=== PATIENT | female | born 1990 | race Caucasian/White ===

== ENCOUNTER 2017-11-13 21:07 | Emergency (ER) | payer OTHER, MEDICAID ==
--- NOTE | 2017-11-13 22:21 | EDM.PDOC ---
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 Stated Complaint: 8 WKS PREG CRAMPING Time Seen by Provider: 11/13/17 21:43 Source of Information: Reports: Patient, RN Notes Reviewed History Limitations: Reports: No Limitations - History of Present Illness INITIAL COMMENTS - FREE TEXT/NARRATIVE: 27-year-old female presents emergency department day complaint of cramping or abdominal pain, she estimates she is about 8 weeks she is a 3 para 2 she is not had any vaginal bleeding or discharge denies any fevers has had cramping for 2 days does admit to lifting boxes at work tries to drink an room maintain hydration no known exposures other than runny nose at home with her children Lower Abdomen Pain Score (Numeric/FACES): 3 - Related Data Allergies Allergy/AdvReac Type Severity Reaction Status Date / Time nystatin Allergy Cannot Verified 11/13/17 21:26 Remember Penicillins Allergy Swelling Verified 11/13/17 21:26 Home Meds: Home Meds Clindamycin HCl [Clindamycin HCl] 300 mg PO TID 11/13/17 [History] Pnv22/Iron Cbn&Gluc/Fa/Dss/Dha [PNV OB + DHA] 1 tab PO DAILY 11/13/17 [History] Past Medical History 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: Psychiatric History: Reports: Anxiety - Infectious Disease History Infectious Disease History: Reports: Chicken Pox, Measles - Past Surgical History HEENT Surgical History: Reports: Adenoidectomy, Myringotomy w Tube(s) Female Surgical History: Reports: LEEP Social & Family History - Family History Family Medical History: Noncontributory - Tobacco Use Smoking Status *Q: Current Every Day Smoker Years of Tobacco use: 12 Packs/Tins Daily: 0.5 Second Hand Smoke Exposure: Yes - Caffeine Use Caffeine Use: Reports: Coffee, Soda - Recreational Drug Use Recreational Drug Use: No ED ROS GENERAL - Review of Systems Review Of Systems: See Below Respiratory: Reports: No Symptoms Cardiovascular: Reports: No Symptoms GI/Abdominal: Reports: Abdominal Pain : Reports: No Symptoms. Denies: Irregular Menses ED EXAM - Physical Exam Exam: See Below Exam Limited By: No Limitations General Appearance: Alert, WD/WN, No Apparent Distress Respiratory/Chest: No Respiratory Distress GI/Abdominal Exam: Normal Bowel Sounds, Soft, Non-Tender, No Organomegaly, No Distention, No Abnormal Bruit, No Mass, Pelvis Stable Heart Tones: Present Heart Tones per Min: 170 (Done with ultrasound intrauterine , cardiac activity observed) Movement: Not Appreciated Course - Vital Signs Last Recorded V/S: Last Vital Signs Temp 98.5 F 11/13/17 21:39 Pulse 115 H 11/13/17 21:39 Resp 16 11/13/17 21:39 BP 111/76 11/13/17 21:39 Pulse Ox 100 11/13/17 21:39 - Orders/Labs/Meds Labs: Laboratory Tests 11/13/17 Range/Units 21:24 Urine Color Yellow Urine Appearance Clear Urine pH 7.0 (4.5-8.0) Ur Specific [place] 1.010 (1.008-1.030) Urine Protein Negative (NEGATIVE) mg/dL Urine Glucose (UA) Normal (NEGATIVE) mg/dL Urine Ketones Negative (NEGATIVE) mg/dL Urine Occult Blood Negative (NEGATIVE) Urine Nitrite Negative (NEGATIVE) Urine Bilirubin Negative (NEGATIVE) Urine Urobilinogen Normal (NORMAL) mg/dL Ur Leukocyte Esterase Negative (NEGATIVE) Urine RBC 0-5 (0-5) Urine WBC 0-5 (0-5) Ur Epithelial Cells Moderate Amorphous Sediment Few Urine Bacteria Few Urine Mucus Few Departure - Departure Time of Disposition: 22:20 Disposition: Home, Self-Care 01 Condition: Good Clinical Impression: Abdominal pain affecting - Discharge Information Referrals: PCP,None [Primary Care Provider] - Additional Instructions: Continue taking vitamin, use Tylenol as needed for pain control, recommend stop clindamycin, recommend follow-up with OB provider after holidays , call return to the emergency department worsening of symptoms - Assessment/Plan Plan: Assessment Acuity = acute Site and laterality = abdominal pain complicated patient with 3 para to 8 weeks intrauterine Etiology = possibly related to clindamycin recently started for dental infection Manifestations = none Location of injury = Home Lab values = none Plan I did review with her options including further blood work which she declined plan is to stop the clindamycin that she has had over 7 day dosing for dental infection she will reassess tomorrow and then return if any new symptomology develops she is going to try and establish with a primary care provider for obstetrical care after the first of the year This note was dictated using [employer] voice recognition software please call with any questions on syntax or veronica.
== END 2017-11-13 22:29 | disposition home or self-care (01) ==
LOC: JP.ED 21:07
DX: O26.891 Other specified pregnancy related conditions, first trimester (principal); R10.9 Unspecified abdominal pain; O99.331 Smoking (tobacco) complicating pregnancy, first trimester; Z3A.08 8 weeks gestation of pregnancy; Z88.0 Allergy status to penicillin
CPT/HCPCS: 81001; 99284

== ENCOUNTER 2018-06-21 07:02 | Inpatient (IN) | payer MEDICAID ==
[2018-06-21] MEDS ORDERED: Sodium Chloride 0.9% 10 ML Syringe FLUSH PRN (07:23)
[2018-06-21] MEDS ORDERED: Lactated Ringers 1,000 ML IV ONE (07:23)
[2018-06-21] MEDS ORDERED: ePHEDrine 50 MG/ML SDV IVPUSH ONE (07:23)
[2018-06-21] MEDS ORDERED: Ondansetron 4 MG/2 ML SDV IV PRN (07:23)
[2018-06-21] MEDS ORDERED: Calcium Carbonate 500 MG Tab.Chew PO PRN (07:23)
[2018-06-21] MEDS ORDERED: fentaNYL 100 MCG/2 ML SDV IVPUSH PRN (07:23)
[2018-06-21] MEDS ORDERED: Acetaminophen 325 MG Tab PO PRN (07:23)
[2018-06-21] MEDS ORDERED: ePHEDrine 50 MG/ML SDV IVPUSH PRN (07:50)
--- NOTE | 2018-06-21 08:32 | PCM.LDHP ---
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: 2 Other OB/BYN History: COLIN-06/22/2018 Psychiatric History: Reports: Anxiety - Infectious Disease History Infectious Disease History: Reports: Herpes - Past Surgical History HEENT Surgical History: Reports: Adenoidectomy, Myringotomy w Tube(s) Female Surgical History: Reports: LEEP Social & Family History - Family History Family Medical History: Noncontributory - Tobacco Use Smoking Status *Q: Current Every Day Smoker Years of Tobacco use: 10 Packs/Tins Daily: 0.5 Second Hand Smoke Exposure: No - Caffeine Use Caffeine Use: Reports: Coffee, Soda - Recreational Drug Use Recreational Drug Use: No H&P Review of Systems - Review of Systems: Review Of Systems: See Below General: Reports: No Symptoms HEENT: Reports: No Symptoms Pulmonary: Reports: No Symptoms Cardiovascular: Reports: No Symptoms Gastrointestinal: Reports: No Symptoms Genitourinary: Reports: No Symptoms Musculoskeletal: Reports: No Symptoms Skin: Reports: No Symptoms Psychiatric: Reports: No Symptoms Neurological: Reports: No Symptoms Hematologic/Lymphatic: Reports: No Symptoms Immunologic: Reports: No Symptoms L&D Exam - Exam Exam: See Below - Vital Signs Vital Signs: Last Vital Signs Temp 36.1 C 06/21/18 07:31 Pulse 98 06/21/18 07:31 Resp 16 06/21/18 07:31 BP 109/74 06/21/18 07:31 Pulse Ox 99 06/21/18 07:31 Weight: 64.864 kg - OB Specific Contraction Intensity: Mild Movement: Active Heart Tones: Present Heart Rate (FHR) Variability: Moderate (6-25 bmp) Estimated Weight: 6lbs - Mcgee Score Mcgee Score Cervix Position: Midposition Mcgee Score Consistency: Soft Mcgee Score Effacement: 51-70% Mcgee Score Dilation: 3-4 cm Mcgee Score Infant's Station: -1 ,0 Mcgee Score Total: 9 - Exam General: Alert, Oriented HEENT: PERRLA, Conjunctiva Clear, EACs Clear, EOMI, Hearing Intact, Mucosa Moist & [place], Nares Patent, Normal Nasal Septum, Posterior Pharynx Clear, TMs Clear Neck: Supple, Trachea Midline Lungs: Clear to Auscultation, Normal Respiratory Effort Cardiovascular: Regular Rate, Regular Rhythm GI/Abdominal Exam: Normal Bowel Sounds, Soft, Non-Tender, No Organomegaly, No Distention, No Abnormal Bruit, No Mass, Pelvis Stable Rectal Exam: Normal Exam, Normal Rectal Tone Genitourinary: Normal external exam, Normal bimanual exam, Normal speculum exam Back Exam: Normal Inspection, Full Range of Motion Extremities: Normal Inspection, Normal Range of Motion, Non-Tender, No Pedal Edema, Normal Capillary Refill Skin: Warm, Dry, Intact Neurological: Cranial Nerves Intact, Reflexes Equal Bilateral Psychiatric: Alert, Normal Affect, Normal Mood - Patient Data Lab Results Last 24 hrs: Laboratory Results - last 24 hr 06/21/18 06/21/18 06/21/18 Range/Units 07:23 07:23 07:39 WBC 13.8 H (4.5-11.0) K/uL RBC 3.51 (3.30-5.50) M/uL Hgb 10.0 L (12.0-15.0) g/dL Hct 30.5 L (36.0-48.0) % MCV 87 (80-98) fL MCH 29 (27-31) pg MCHC 33 (32-36) % Plt Count 285 (150-400) K/uL Neut % (Auto) 67 H (36-66) % Lymph % (Auto) 21 L (24-44) % [place] % (Auto) 10 H (2-6) % Eos % (Auto) 2 (2-4) % Baso % (Auto) 0 (0-1) % Sodium (140-148) mmol/L Potassium (3.6-5.2) mmol/L Chloride (100-108) mmol/L Carbon Dioxide (21-32) mmol/L Anion Gap (5.0-14.0) mmol/L BUN (7-18) mg/dL Creatinine (0.6-1.0) mg/dL Est Cr Clr Drug Dosing mL/min Estimated GFR (MDRD) (>60) Glucose (74-106) mg/dL Calcium (8.5-10.1) mg/dL Urine Color Yellow Urine Appearance Clear Urine pH 7.0 (4.5-8.0) Ur Specific [place] 1.005 L (1.008-1.030) Urine Protein Negative (NEGATIVE) mg/dL Urine Glucose (UA) Normal (NEGATIVE) mg/dL Urine Ketones Negative (NEGATIVE) mg/dL Urine Occult Blood Negative (NEGATIVE) Urine Nitrite Negative (NEGATIVE) Urine Bilirubin Negative (NEGATIVE) Urine Urobilinogen Normal (NORMAL) mg/dL Ur Leukocyte Esterase Negative (NEGATIVE) Urine RBC 0-5 (0-5) Urine WBC 0-5 (0-5) Ur Epithelial Cells Rare Amorphous Sediment Not seen Urine Bacteria Rare Urine Mucus Not seen Urine Opiates Screen Negative (NEGATIVE) Ur Oxycodone Screen Negative (NEGATIVE) Urine Methadone Screen Negative (NEGATIVE) Ur Propoxyphene Screen Negative (NEGATIVE) Ur Barbiturates Screen Negative (NEGATIVE) Ur Tricyclics Screen Negative (NEGATIVE) Ur Phencyclidine Scrn Negative (NEGATIVE) Ur Amphetamine Screen Negative (NEGATIVE) U Methamphetamines Scrn Negative (NEGATIVE) Urine MDMA Screen Negative (NEGATIVE) U Benzodiazepines Scrn Negative (NEGATIVE) U Cocaine Metab Screen Negative (NEGATIVE) U Marijuana (THC) Screen Negative (NEGATIVE) 06/21/18 Range/Units 07:39 WBC (4.5-11.0) K/uL RBC (3.30-5.50) M/uL Hgb (12.0-15.0) g/dL Hct (36.0-48.0) % MCV (80-98) fL MCH (27-31) pg MCHC (32-36) % Plt Count (150-400) K/uL Neut % (Auto) (36-66) % Lymph % (Auto) (24-44) % [place] % (Auto) (2-6) % Eos % (Auto) (2-4) % Baso % (Auto) (0-1) % Sodium 138 L (140-148) mmol/L Potassium 3.4 L (3.6-5.2) mmol/L Chloride 102 (100-108) mmol/L Carbon Dioxide 23 (21-32) mmol/L Anion Gap 16.4 H (5.0-14.0) mmol/L BUN 3 L (7-18) mg/dL Creatinine 0.6 (0.6-1.0) mg/dL Est Cr Clr Drug Dosing 131.85 mL/min Estimated GFR (MDRD) > 60 (>60) Glucose 93 (74-106) mg/dL Calcium 8.3 L (8.5-10.1) mg/dL Urine Color Urine Appearance Urine pH (4.5-8.0) Ur Specific [place] (1.008-1.030) Urine Protein (NEGATIVE) mg/dL Urine Glucose (UA) (NEGATIVE) mg/dL Urine Ketones (NEGATIVE) mg/dL Urine Occult Blood (NEGATIVE) Urine Nitrite (NEGATIVE) Urine Bilirubin (NEGATIVE) Urine Urobilinogen (NORMAL) mg/dL Ur Leukocyte Esterase (NEGATIVE) Urine RBC (0-5) Urine WBC (0-5) Ur Epithelial Cells Amorphous Sediment Urine Bacteria Urine Mucus Urine Opiates Screen (NEGATIVE) Ur Oxycodone Screen (NEGATIVE) Urine Methadone Screen (NEGATIVE) Ur Propoxyphene Screen (NEGATIVE) Ur Barbiturates Screen (NEGATIVE) Ur Tricyclics Screen (NEGATIVE) Ur Phencyclidine Scrn (NEGATIVE) Ur Amphetamine Screen (NEGATIVE) U Methamphetamines Scrn (NEGATIVE) Urine MDMA Screen (NEGATIVE) U Benzodiazepines Scrn (NEGATIVE) U Cocaine Metab Screen (NEGATIVE) U Marijuana (THC) Screen (NEGATIVE) Result Diagrams: 06/21/18 07:39 06/21/18 07:39 - Problem List (1) Unintended weight loss SNOMED Code(s): 613348569 ICD Code: R63.4 - ABNORMAL WEIGHT LOSS Status: Acute Current Visit: Yes (2) Encounter for induction of labor SNOMED Code(s): 482301707 ICD Code: Z34.90 - ENCNTR FOR SUPRVSN OF NORMAL , UNSP, UNSP TRIMESTER Status: Acute Current Visit: Yes (3) Small for gestational age fetus SNOMED Code(s): 574880103 ICD Code: OBX8130 - Status: Acute Current Visit: Yes (4) SNOMED Code(s): 36379977 ICD Code: Z34.90 - ENCNTR FOR SUPRVSN OF NORMAL , UNSP, UNSP TRIMESTER Status: Acute Current Visit: Yes Qualifiers: Weeks of gestation: 39 weeks Qualified Code(s): Z3A.39 - 39 weeks gestation of Problem List Initiated/Reviewed/Updated: Yes Orders Last 24hrs: Active Orders 24 hr Category Date Time Status Patient Status [ADT] Routine ADT 06/21/18 07:25 Active Ambulate [RC] PER UNIT ROUTINE Care 06/21/18 07:23 Active Communication Order [RC] ASDIRECTED Care 06/21/18 07:25 Active Non Stress Test [RC] Click to Edit Care 06/21/18 07:25 Active Insert Urinary Catheter [OM.PC] ASDIRECTED Care 06/21/18 07:30 Ordered Local Anesthetic Infusion Pump [RC] ASDIRECTED Care 06/21/18 07:25 Active Notify Provider Vital Signs [RC] PRN Care 06/21/18 07:23 Active Notify Provider [RC] PRN Care 06/21/18 07:25 Active PCEA Epidural [RC] ASDIRECTED Care 06/21/18 07:25 Active Up ad Nicole [RC] ASDIRECTED Care 06/21/18 07:23 Active Urinary Catheter Assessment [RC] ASDIRECTED Care 06/21/18 07:26 Active VTE/DVT Education [RC] Click to Edit Care 06/21/18 07:29 Active Verify Patient Consent Obtain [RC] ASDIRECTED Care 06/21/18 07:25 Active Vital Signs [RC] PER UNIT ROUTINE Care 06/21/18 07:25 Active Regular Diet [DIET] Diet 06/21/18 Breakfast Active DRUG SCREEN, URINE [URCHEM] Urgent Lab 06/21/18 07:23 Ordered UA W/MICROSCOPIC [URIN] Urgent Lab 06/21/18 07:23 Ordered Acetaminophen [Tylenol] Med 06/21/18 07:23 Active 650 mg PO Q4H PRN Calcium Carbonate [Tums] Med 06/21/18 07:23 Active 1,000 mg PO Q2H PRN Ondansetron [Zofran] Med 06/21/18 07:23 Active 4 mg IV Q4H PRN Oxytocin/Normal Saline [Pitocin in NS 20 Units/1,000 ML Med 06/21/18 07:30 Active ] 20 unit in 1,000 ml IV TITRATE Sodium Chloride 0.9% [Saline Flush] Med 06/21/18 07:23 Active 10 ml FLUSH ASDIRECTED PRN ePHEDrine [ePHEDrine Sulfate] Med 06/21/18 07:50 Active 5 mg IVPUSH ONETIME PRN fentaNYL [Sublimaze] Med 06/21/18 07:23 Active 100 mcg IVPUSH Q1H PRN DVT/VTE Prophylaxis Reflex [OM.PC] Routine Oth 06/21/18 07:23 Ordered Epidural Catheter Management [OM.PC] Urgent Oth 06/21/18 07:25 Ordered Saline Lock Insert [OM.PC] Routine Oth 06/21/18 07:25 Ordered Resuscitation Status Routine Resus Stat 06/21/18 07:23 Ordered Medication Orders Acetaminophen (Tylenol) 650 mg PO Q4H PRN PRN Reason: Pain (Mild 1-3) and fever Calcium Carbonate/Glycine (Tums) 1,000 mg PO Q2H PRN PRN Reason: Indigestion Ephedrine Sulfate (Ephedrine Sulfate) 5 mg IVPUSH ONETIME PRN PRN Reason: REFER TO INSTRUCTION Fentanyl (Sublimaze) 100 mcg IVPUSH Q1H PRN PRN Reason: Pain (moderate 4-6) Oxytocin/Sodium Chloride (Pitocin In Ns 20 Units/1,000 Ml) 20 unit in 1,000 mls @ 6 mls/hr IV TITRATE OLGA; Protocol Last Admin: 06/21/18 08:10 Dose: 1 munits/min, 3 mls/hr Ondansetron HCl (Zofran) 4 mg IV Q4H PRN PRN Reason: Nausea/Vomiting Sodium Chloride (Saline Flush) 10 ml FLUSH ASDIRECTED PRN PRN Reason: Keep Vein Open Assessment/Plan Comment:: 06/21/2018 27 yo at 39 6/7 gestational weeks here for an induction of labor Small for gestational age 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
[2018-06-21] MEDS ORDERED: Ropivacaine HCl/PF 200 ML ONE (14:31)
--- NOTE | 2018-06-21 14:32 | PCM.PNLD ---
Labor Progress Note - VS & Meds Vital Signs: Last Vital Signs Temp 35.8 C 06/21/18 10:08 Pulse 67 06/21/18 10:08 Resp 16 06/21/18 10:08 BP 108/64 06/21/18 10:08 Pulse Ox 99 06/21/18 10:08 Active Medications: Current Medications Acetaminophen (Tylenol) 650 mg PO Q4H PRN PRN Reason: Pain (Mild 1-3) and fever Last Admin: 06/21/18 10:05 Dose: 650 mg Calcium Carbonate/Glycine (Tums) 1,000 mg PO Q2H PRN PRN Reason: Indigestion Ephedrine Sulfate (Ephedrine Sulfate) 5 mg IVPUSH ONETIME PRN PRN Reason: REFER TO INSTRUCTION Fentanyl (Sublimaze) 100 mcg IVPUSH Q1H PRN PRN Reason: Pain (moderate 4-6) Oxytocin/Sodium Chloride (Pitocin In Ns 20 Units/1,000 Ml) 20 unit in 1,000 mls @ 6 mls/hr IV TITRATE OLGA; Protocol Last Titration: 06/21/18 12:36 Dose: 13 munits/min, 39 mls/hr Ondansetron HCl (Zofran) 4 mg IV Q4H PRN PRN Reason: Nausea/Vomiting Sodium Chloride (Saline Flush) 10 ml FLUSH ASDIRECTED PRN PRN Reason: Keep Vein Open Discontinued Medications Lactated Ringer's (Ringers, Lactated) 1,000 mls @ 999 mls/hr IV ONETIME ONE Stop: 06/21/18 08:23 Last Admin: 06/21/18 14:01 Dose: 999 mls/hr - Uterine Contractions Uterine Monitoring Mode: External [place] Contraction Frequency (min): 2-2.5 Contraction Duration (sec): 50-90 Contraction Intensity: Strong Uterine Resting Tone: Soft - Monitoring Heart Rate (FHR) Variability: Moderate (6-25 bmp) - Vaginal Exam Dilation (cm): 8 Effacement (Percent): 90 Station: 0 Cervical Position: Midposition Sterile Vaginal Exam Performed By: Odette Silveira - Labor Progress (Free Text) Labor Progress: 06/21/2018 Labor progressing well SROM SVE-8/90/0 Patient requesting epidural FHTs category one Stacey regular on Pitocin Plan- Continue to monitor labor Attempt to get epidural for pain control Continue to monitor FHTs Continue pitocin per protocol Plan and anticipate a vaginal delivery
--- NOTE | 2018-06-21 14:34 | PCM.PNLD ---
Labor Progress Note - VS & Meds Vital Signs: Last Vital Signs Temp 35.8 C 06/21/18 10:08 Pulse 67 06/21/18 10:08 Resp 16 06/21/18 10:08 BP 108/64 06/21/18 10:08 Pulse Ox 99 06/21/18 10:08 Active Medications: Current Medications Acetaminophen (Tylenol) 650 mg PO Q4H PRN PRN Reason: Pain (Mild 1-3) and fever Last Admin: 06/21/18 10:05 Dose: 650 mg Calcium Carbonate/Glycine (Tums) 1,000 mg PO Q2H PRN PRN Reason: Indigestion Ephedrine Sulfate (Ephedrine Sulfate) 5 mg IVPUSH ONETIME PRN PRN Reason: REFER TO INSTRUCTION Fentanyl (Sublimaze) 100 mcg IVPUSH Q1H PRN PRN Reason: Pain (moderate 4-6) Oxytocin/Sodium Chloride (Pitocin In Ns 20 Units/1,000 Ml) 20 unit in 1,000 mls @ 6 mls/hr IV TITRATE OLGA; Protocol Last Titration: 06/21/18 12:36 Dose: 13 munits/min, 39 mls/hr Ondansetron HCl (Zofran) 4 mg IV Q4H PRN PRN Reason: Nausea/Vomiting Sodium Chloride (Saline Flush) 10 ml FLUSH ASDIRECTED PRN PRN Reason: Keep Vein Open Discontinued Medications Lactated Ringer's (Ringers, Lactated) 1,000 mls @ 999 mls/hr IV ONETIME ONE Stop: 06/21/18 08:23 Last Admin: 06/21/18 14:01 Dose: 999 mls/hr Ropivacaine (Naropin 0.2%) Confirm Administered Dose 200 mls @ as directed .ROUTE .STK-MED ONE Stop: 06/21/18 14:32 - Uterine Contractions Uterine Monitoring Mode: External [place] Contraction Frequency (min): 2-2.5 Contraction Duration (sec): 50-90 Contraction Intensity: Strong Uterine Resting Tone: Soft - Monitoring Heart Rate (FHR) Variability: Moderate (6-25 bmp) - Vaginal Exam Dilation (cm): 4 Effacement (Percent): 90 Station: 0 Cervical Position: Midposition Sterile Vaginal Exam Performed By: Odette Silveira - Labor Progress (Free Text) Labor Progress: 06/21/2018 Patient slowly progressing on pitocin SVE-90/0 Contractions more regular FHTs category one Plan- Continue to monitor labor Continue to monitor FHTs Continue Pitocin Pain management per patient request Plan and anticipate a vaginal delivery
[2018-06-21] MEDS ORDERED: Witch Hazel Medicated Pads 100/Jar TOP PRN (16:09)
[2018-06-21] MEDS ORDERED: Docusate Sodium 100 MG Cap PO PRN (16:09)
[2018-06-21] MEDS ORDERED: Ibuprofen 200 MG Tab, 24 Tab Bulk Bottle PO PRN (16:09)
[2018-06-21] MEDS ORDERED: Lanolin 100% Cream 40 GM Tube TOP PRN (16:09)
[2018-06-21] MEDS ORDERED: Acetaminophen 325 MG Tab, 50 Tab Bulk Bottle PO PRN (16:09)
[2018-06-21] MEDS ORDERED: Hydrocortisone 2.5% Crm 30 GM Tube TOP PRN (16:09)
--- NOTE | 2018-06-21 16:55 | PCM.DEL ---
L & D Note - General Info Date of Service: 06/21/18 Mother's Due Date: 06/22/18 - Delivery Note Labor: Induced by Oxytocin Delivery Outcome: Livebirth Delivery Method: Spontaneous Vaginal Delivery-Single Infant Delivery Mode: Spontaneous Presentation: Left Occiput Posterior (LOP) Nuchal Cord: Present, Reduced Anesthesia Type: Epidural Laceration: None Placenta: Intact, Spontaneous Cord: 3 Vessels Estimated Blood Loss: 300 Resuscitation Needed: No Score 1 min: 7 Score 5 min: 8 Second Stage Interventions: Reports: Encouragement Given, Pushing Effectively Delivery Comments (Free Text/Narrative):: 06/21/2018 27 yo at 39 6/7 gestational weeks delivered at viable male infant on 2017 at 1554 in ROP position over an intact perineum. Nuchal cord times one easily reduced. APGARS-7/8, weight-8lbs 7.6oz, length-19.5inches, Infant placed on mother's abdomen and stimulated, dried, warmed, and bulb suctioned. Placenta spontaneous and intact-three vessel cord, EBL-300ml. No lacerations noted of cervix, vagina, rectum, or perineum. Infant now skin to skin with mother and both stable in labor and delivery room. - General Info Date of Service: 06/21/18 Functional Status: Reports: Pain Controlled - Review of Systems General: Reports: No Symptoms HEENT: Reports: No Symptoms Pulmonary: Reports: No Symptoms Cardiovascular: Reports: No Symptoms Gastrointestinal: Reports: No Symptoms Genitourinary: Reports: No Symptoms Musculoskeletal: Reports: No Symptoms Skin: Reports: No Symptoms Neurological: Reports: No Symptoms Psychiatric: Reports: No Symptoms - Patient Data Vitals - Most Recent: Last Vital Signs Temp 35.8 C 06/21/18 10:08 Pulse 81 06/21/18 14:50 Resp 16 06/21/18 10:08 BP 113/70 06/21/18 14:50 Pulse Ox 99 06/21/18 10:08 Weight - Most Recent: 64.864 kg Lab Results Last 24 Hours: Laboratory Results - last 24 hr 06/21/18 06/21/18 06/21/18 Range/Units 07:23 07:23 07:39 WBC 13.8 H (4.5-11.0) K/uL RBC 3.51 (3.30-5.50) M/uL Hgb 10.0 L (12.0-15.0) g/dL Hct 30.5 L (36.0-48.0) % MCV 87 (80-98) fL MCH 29 (27-31) pg MCHC 33 (32-36) % Plt Count 285 (150-400) K/uL Neut % (Auto) 67 H (36-66) % Lymph % (Auto) 21 L (24-44) % Holt % (Auto) 10 H (2-6) % Eos % (Auto) 2 (2-4) % Baso % (Auto) 0 (0-1) % Sodium (140-148) mmol/L Potassium (3.6-5.2) mmol/L Chloride (100-108) mmol/L Carbon Dioxide (21-32) mmol/L Anion Gap (5.0-14.0) mmol/L BUN (7-18) mg/dL Creatinine (0.6-1.0) mg/dL Est Cr Clr Drug Dosing mL/min Estimated GFR (MDRD) (>60) Glucose (74-106) mg/dL Calcium (8.5-10.1) mg/dL Urine Color Yellow Urine Appearance Clear Urine pH 7.0 (4.5-8.0) Ur Specific [place] 1.005 L (1.008-1.030) Urine Protein Negative (NEGATIVE) mg/dL Urine Glucose (UA) Normal (NEGATIVE) mg/dL Urine Ketones Negative (NEGATIVE) mg/dL Urine Occult Blood Negative (NEGATIVE) Urine Nitrite Negative (NEGATIVE) Urine Bilirubin Negative (NEGATIVE) Urine Urobilinogen Normal (NORMAL) mg/dL Ur Leukocyte Esterase Negative (NEGATIVE) Urine RBC 0-5 (0-5) Urine WBC 0-5 (0-5) Ur Epithelial Cells Rare Amorphous Sediment Not seen Urine Bacteria Rare Urine Mucus Not seen Urine Opiates Screen Negative (NEGATIVE) Ur Oxycodone Screen Negative (NEGATIVE) Urine Methadone Screen Negative (NEGATIVE) Ur Propoxyphene Screen Negative (NEGATIVE) Ur Barbiturates Screen Negative (NEGATIVE) Ur Tricyclics Screen Negative (NEGATIVE) Ur Phencyclidine Scrn Negative (NEGATIVE) Ur Amphetamine Screen Negative (NEGATIVE) U Methamphetamines Scrn Negative (NEGATIVE) Urine MDMA Screen Negative (NEGATIVE) U Benzodiazepines Scrn Negative (NEGATIVE) U Cocaine Metab Screen Negative (NEGATIVE) U Marijuana (THC) Screen Negative (NEGATIVE) 06/21/18 Range/Units 07:39 WBC (4.5-11.0) K/uL RBC (3.30-5.50) M/uL Hgb (12.0-15.0) g/dL Hct (36.0-48.0) % MCV (80-98) fL MCH (27-31) pg MCHC (32-36) % Plt Count (150-400) K/uL Neut % (Auto) (36-66) % Lymph % (Auto) (24-44) % Holt % (Auto) (2-6) % Eos % (Auto) (2-4) % Baso % (Auto) (0-1) % Sodium 138 L (140-148) mmol/L Potassium 3.4 L (3.6-5.2) mmol/L Chloride 102 (100-108) mmol/L Carbon Dioxide 23 (21-32) mmol/L Anion Gap 16.4 H (5.0-14.0) mmol/L BUN 3 L (7-18) mg/dL Creatinine 0.6 (0.6-1.0) mg/dL Est Cr Clr Drug Dosing 131.85 mL/min Estimated GFR (MDRD) > 60 (>60) Glucose 93 (74-106) mg/dL Calcium 8.3 L (8.5-10.1) mg/dL Urine Color Urine Appearance Urine pH (4.5-8.0) Ur Specific [place] (1.008-1.030) Urine Protein (NEGATIVE) mg/dL Urine Glucose (UA) (NEGATIVE) mg/dL Urine Ketones (NEGATIVE) mg/dL Urine Occult Blood (NEGATIVE) Urine Nitrite (NEGATIVE) Urine Bilirubin (NEGATIVE) Urine Urobilinogen (NORMAL) mg/dL Ur Leukocyte Esterase (NEGATIVE) Urine RBC (0-5) Urine WBC (0-5) Ur Epithelial Cells Amorphous Sediment Urine Bacteria Urine Mucus Urine Opiates Screen (NEGATIVE) Ur Oxycodone Screen (NEGATIVE) Urine Methadone Screen (NEGATIVE) Ur Propoxyphene Screen (NEGATIVE) Ur Barbiturates Screen (NEGATIVE) Ur Tricyclics Screen (NEGATIVE) Ur Phencyclidine Scrn (NEGATIVE) Ur Amphetamine Screen (NEGATIVE) U Methamphetamines Scrn (NEGATIVE) Urine MDMA Screen (NEGATIVE) U Benzodiazepines Scrn (NEGATIVE) U Cocaine Metab Screen (NEGATIVE) U Marijuana (THC) Screen (NEGATIVE) Med Orders - Current: Current Medications Acetaminophen (Tylenol) 650 mg PO Q4H PRN PRN Reason: Pain (Mild 1-3) and fever Last Admin: 06/21/18 10:05 Dose: 650 mg Acetaminophen (Tylenol Bulk Bottle) 325 mg PO Q4H PRN PRN Reason: Pain Calcium Carbonate/Glycine (Tums) 1,000 mg PO Q2H PRN PRN Reason: Indigestion Docusate Sodium (Colace) 100 mg PO BID PRN PRN Reason: Constipation Emollient Ointment (Lansinoh Hpa) 0 gm TOP ASDIRECTED PRN PRN Reason: Sore Nipples Ephedrine Sulfate (Ephedrine Sulfate) 5 mg IVPUSH ONETIME PRN PRN Reason: REFER TO INSTRUCTION Fentanyl (Sublimaze) 100 mcg IVPUSH Q1H PRN PRN Reason: Pain (moderate 4-6) Hydrocortisone (Proctozone-Hc 2.5% Crm) 0 gm TOP ASDIRECTED PRN PRN Reason: Itching Oxytocin/Sodium Chloride (Pitocin In Ns 20 Units/1,000 Ml) 20 unit in 1,000 mls @ 6 mls/hr IV TITRATE OLGA; Protocol Last Titration: 06/21/18 12:36 Dose: 13 munits/min, 39 mls/hr Ibuprofen (Motrin Bulk Bottle) 600 mg PO Q6H PRN PRN Reason: Pain Ondansetron HCl (Zofran) 4 mg IV Q4H PRN PRN Reason: Nausea/Vomiting Sodium Chloride (Saline Flush) 10 ml FLUSH ASDIRECTED PRN PRN Reason: Keep Vein Open Witch Linda (Tucks) 1 pad TOP ASDIRECTED PRN PRN Reason: Hemorrhoids Discontinued Medications Lactated Ringer's (Ringers, Lactated) 1,000 mls @ 999 mls/hr IV ONETIME ONE Stop: 06/21/18 08:23 Last Admin: 06/21/18 14:01 Dose: 999 mls/hr Ropivacaine (Naropin 0.2%) Confirm Administered Dose 200 mls @ as directed .ROUTE .STK-MED ONE Stop: 06/21/18 14:32 Oxytocin/Sodium Chloride (Pitocin In Ns 20 Units/1,000 Ml) 20 unit in 1,000 mls @ 2,997 mls/hr IV ONETIME ONE; Protocol Stop: 06/21/18 16:33 - Exam General: Alert, Oriented HEENT: Pupils Equal, Pupils Reactive, EOMI, Mucous Membr. Moist/[place] Neck: Supple Lungs: Clear to Auscultation, Normal Respiratory Effort Cardiovascular: Regular Rate, Regular Rhythm GI/Abdominal Exam: Normal Bowel Sounds, Soft, Non-Tender, No Organomegaly, No Distention, No Abnormal Bruit, No Mass, Pelvis Stable (Female) Exam: Normal External Exam, Normal Speculum Exam, Normal Bimanual Exam, Enlarged Uterus, Vaginal Bleeding Back Exam: Normal Inspection, Full Range of Motion Extremities: Normal Inspection, Normal Range of Motion, Non-Tender, No Pedal Edema, Normal Capillary Refill Skin: Warm, Dry, Intact Neurological: No New Focal Deficit Psy/Mental Status: Alert, Normal Affect, Normal Mood - Problem List & Annotations (1) Unintended weight loss SNOMED Code(s): 540984788 Code(s): R63.4 - ABNORMAL WEIGHT LOSS Status: Acute Current Visit: Yes (2) Encounter for induction of labor SNOMED Code(s): 602316613 Code(s): Z34.90 - ENCNTR FOR SUPRVSN OF NORMAL , UNSP, UNSP TRIMESTER Status: Acute Current Visit: Yes (3) SNOMED Code(s): 62561226 Code(s): Z34.90 - ENCNTR FOR SUPRVSN OF NORMAL , UNSP, UNSP TRIMESTER Status: Acute Current Visit: Yes Qualifiers: Weeks of gestation: 39 weeks Qualified Code(s): Z3A.39 - 39 weeks gestation of (4) Normal vaginal delivery SNOMED Code(s): 17246425 Code(s): O80 - ENCOUNTER FOR FULL-TERM UNCOMPLICATED DELIVERY Status: Acute Current Visit: Yes - Problem List Review Problem List Initiated/Reviewed/Updated: Yes - My Orders Last 24 Hours: My Active Orders 06/21/18 07:23 Ambulate [RC] PER UNIT ROUTINE Notify Provider Vital Signs [RC] PRN Up ad Nicole [RC] ASDIRECTED DRUG SCREEN, URINE [URCHEM] Urgent UA W/MICROSCOPIC [URIN] Urgent Acetaminophen [Tylenol] 650 mg PO Q4H PRN Calcium Carbonate [Tums] 1,000 mg PO Q2H PRN Ondansetron [Zofran] 4 mg IV Q4H PRN Sodium Chloride 0.9% [Saline Flush] 10 ml FLUSH ASDIRECTED PRN fentaNYL [Sublimaze] 100 mcg IVPUSH Q1H PRN DVT/VTE Prophylaxis Reflex [OM.PC] Routine Resuscitation Status Routine 06/21/18 07:25 Patient Status [ADT] Routine Communication Order [RC] ASDIRECTED Non Stress Test [RC] Click to Edit Local Anesthetic Infusion Pump [RC] ASDIRECTED Notify Provider [RC] PRN PCEA Epidural [RC] ASDIRECTED Vital Signs [RC] PER UNIT ROUTINE Epidural Catheter Management [OM.PC] Urgent Saline Lock Insert [OM.PC] Routine 06/21/18 07:26 Urinary Catheter Assessment [RC] ASDIRECTED 06/21/18 07:29 VTE/DVT Education [RC] Click to Edit 06/21/18 07:30 Insert Urinary Catheter [OM.PC] ASDIRECTED Oxytocin/Normal Saline [Pitocin in NS 20 Units/1,000 ML] 20 unit in 1,000 ml IV TITRATE 06/21/18 07:50 ePHEDrine [ePHEDrine Sulfate] 5 mg IVPUSH ONETIME PRN 06/21/18 16:09 May Shower [RC] ASDIRECTED Acetaminophen [Tylenol Bulk Bottle] 325 mg PO Q4H PRN Docusate Sodium [Colace] 100 mg PO BID PRN Hydrocortisone [Proctozone-HC 2.5% Crm] 0 gm TOP ASDIRECTED PRN Ibuprofen [Motrin Bulk Bottle] 600 mg PO Q6H PRN Lanolin [Lansinoh HPA] 0 gm TOP ASDIRECTED PRN Witch Linda [Tucks] 1 pad TOP ASDIRECTED PRN Assess Lochia [WOMSER] Per Unit Routine Assess Uterine Involution [WOMSER] Per Unit Routine 06/21/18 16:10 Patient Status [ADT] Routine Vital Signs [RC] PFP 06/21/18 16:11 Perineal Care [OM.PC] Per Unit Routine 06/21/18 Breakfast Regular Diet [DIET] 06/22/18 06:00 CBC WITH AUTO DIFF [HEME] Routine - Assessment Assessment:: 06/21/2018 27yo G3 now P3 at 39 6/7 gestational weeks without complications Labs-A positive, GBS negative, RPR nonreactive, Hep B neg, HIV neg, Hep C neg, Rubella Immune, Hgb-10.0 - Plan Plan:: 06/21/2018 27 yo at 39 6/7 gestational weeks here for an induction of labor Small for gestational age 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
--- NOTE | 2018-06-21 17:17 | ANES ---
DATE OF SERVICE: 06/21/2018 TIME: 1350 hours. I was called by Odette Silveira to evaluate Ms. Johnson for a labor epidural. This is her 3rd child and she is progressing nicely in her Labor and is approximately 7-8 cm. I did discuss with her at length the risks and benefits and she wished to proceed with labor epidural. She is placed in a sitting position. Her back was prepped x3 with Betadine, 1% lidocaine skin local was used. The epidural had very good feel throughout and the epidural space was easily identified. There was negative CSF, negative blood, and negative paresthesias noted. Therefore, a catheter was threaded to 13 cm at the skin. The catheter had negative CSF, negative blood, negative paresthesias as well. The catheter was then secured with Tegaderm and tape and the patient was placed in a supine position. A 1.5% lidocaine with epinephrine test dose was given and this test dose was negative. She was then placed in a supine position and then a 0.2% ropivacaine bolus of 10 mL was given. The initial bolus had very good feel throughout and her vital signs remained stable. Therefore a 0.2% ropivacaine drip was started at 12 mL/h. She tolerated the procedure very nicely. She had good pain relief and her vital signs remained stable. We will continue to monitor her throughout her Labor and Delivery stay. Adam Otoole CRNA /[id number]
--- NOTE | 2018-06-22 07:57 | PCM.PNPP ---
- General Info Date of Service: 06/22/18 ( Day One) Functional Status: Reports: Pain Controlled - Review of Systems General: Reports: No Symptoms HEENT: Reports: No Symptoms Pulmonary: Reports: No Symptoms Cardiovascular: Reports: No Symptoms Gastrointestinal: Reports: No Symptoms Genitourinary: Reports: No Symptoms Musculoskeletal: Reports: No Symptoms Skin: Reports: No Symptoms Neurological: Reports: No Symptoms Psychiatric: Reports: No Symptoms - General Info Date of Service: 06/22/18 - Patient Data Vital Signs - Most Recent: Last Vital Signs Temp 36.3 C 06/22/18 02:17 Pulse 56 L 06/22/18 02:17 Resp 16 06/22/18 02:17 BP 108/58 L 06/22/18 02:17 Pulse Ox 100 06/22/18 02:17 Weight - Most Recent: 64.864 kg Lab Results - Last 24 Hours: Laboratory Results - last 24 hr 06/21/18 06/22/18 Range/Units 07:39 06:00 WBC 16.0 H (4.5-11.0) K/uL RBC 3.21 L (3.30-5.50) M/uL Hgb 9.0 L (12.0-15.0) g/dL Hct 27.8 L (36.0-48.0) % MCV 87 (80-98) fL MCH 28 (27-31) pg MCHC 32 (32-36) % Plt Count 278 (150-400) K/uL Neut % (Auto) 67 H (36-66) % Lymph % (Auto) 22 L (24-44) % [place] % (Auto) 10 H (2-6) % Eos % (Auto) 1 L (2-4) % Baso % (Auto) 0 (0-1) % Sodium 138 L (140-148) mmol/L Potassium 3.4 L (3.6-5.2) mmol/L Chloride 102 (100-108) mmol/L Carbon Dioxide 23 (21-32) mmol/L Anion Gap 16.4 H (5.0-14.0) mmol/L BUN 3 L (7-18) mg/dL Creatinine 0.6 (0.6-1.0) mg/dL Est Cr Clr Drug Dosing 131.85 mL/min Estimated GFR (MDRD) > 60 (>60) Glucose 93 (74-106) mg/dL Calcium 8.3 L (8.5-10.1) mg/dL Med Orders - Current: Current Medications Acetaminophen (Tylenol) 650 mg PO Q4H PRN PRN Reason: Pain (Mild 1-3) and fever Last Admin: 06/21/18 10:05 Dose: 650 mg Acetaminophen (Tylenol Bulk Bottle) 325 mg PO Q4H PRN PRN Reason: Pain Last Admin: 06/21/18 19:56 Dose: 1 bottle Calcium Carbonate/Glycine (Tums) 1,000 mg PO Q2H PRN PRN Reason: Indigestion Docusate Sodium (Colace) 100 mg PO BID PRN PRN Reason: Constipation Emollient Ointment (Lansinoh Hpa) 0 gm TOP ASDIRECTED PRN PRN Reason: Sore Nipples Last Admin: 06/21/18 19:56 Dose: 1 applic Fentanyl (Sublimaze) 100 mcg IVPUSH Q1H PRN PRN Reason: Pain (moderate 4-6) Hydrocortisone (Proctozone-Hc 2.5% Crm) 0 gm TOP ASDIRECTED PRN PRN Reason: Itching Ibuprofen (Motrin Bulk Bottle) 600 mg PO Q6H PRN PRN Reason: Pain Last Admin: 06/21/18 19:56 Dose: 1 bottle Ondansetron HCl (Zofran) 4 mg IV Q4H PRN PRN Reason: Nausea/Vomiting Sodium Chloride (Saline Flush) 10 ml FLUSH ASDIRECTED PRN PRN Reason: Keep Vein Open Witmiguel Mckeon (Tucks) 1 pad TOP ASDIRECTED PRN PRN Reason: Hemorrhoids Last Admin: 06/21/18 19:55 Dose: 1 applic Discontinued Medications Ephedrine Sulfate (Ephedrine Sulfate) 5 mg IVPUSH ONETIME PRN PRN Reason: REFER TO INSTRUCTION Lactated Ringer's (Ringers, Lactated) 1,000 mls @ 999 mls/hr IV ONETIME ONE Stop: 06/21/18 08:23 Last Admin: 06/21/18 14:01 Dose: 999 mls/hr Oxytocin/Sodium Chloride (Pitocin In Ns 20 Units/1,000 Ml) 20 unit in 1,000 mls @ 6 mls/hr IV TITRATE OLGA; Protocol Last Titration: 06/21/18 15:54 Dose: 999 mls/hr Ropivacaine (Naropin 0.2%) Confirm Administered Dose 200 mls @ as directed .ROUTE .STK-MED ONE Stop: 06/21/18 14:32 Oxytocin/Sodium Chloride (Pitocin In Ns 20 Units/1,000 Ml) 20 unit in 1,000 mls @ 2,997 mls/hr IV ONETIME ONE; Protocol Stop: 06/21/18 16:33 Last Admin: 06/21/18 17:23 Dose: Not Given - Infant Interaction Infant Disposition, : in Room with Family Interaction: Holding Feeding: Attempted ; Nursed Fair/Poor, Bottle Fed Support Person: - Recovery Exam Fundal Tone: Firms with Massage Fundal Level: At Umbilicus Fundal Placement: Midline Lochia Amount: Moderate Lochia Color: Rubra/Red Perineum Description: Intact, Minimal Bruising/Swelling Episiotomy/Laceration: None Bladder Status: Voiding Urinary Elimination: Voided - Exam General: Alert, Oriented HEENT: Pupils Equal Neck: Supple Lungs: Clear to Auscultation, Normal Respiratory Effort Cardiovascular: Regular Rate, Regular Rhythm GI/Abdominal Exam: Normal Bowel Sounds, Soft, Non-Tender, No Organomegaly, No Distention, No Abnormal Bruit, No Mass, Pelvis Stable Extremities: Normal Inspection, Normal Range of Motion, Non-Tender, No Pedal Edema, Normal Capillary Refill Skin: Warm, Dry, Intact Neurological: No New Focal Deficit Psy/Mental Status: Alert, Normal Affect, Normal Mood - Problem List & Annotations (1) Unintended weight loss SNOMED Code(s): 640127269 Code(s): R63.4 - ABNORMAL WEIGHT LOSS Status: Acute Current Visit: Yes (2) Encounter for induction of labor SNOMED Code(s): 083179186 Code(s): Z34.90 - ENCNTR FOR SUPRVSN OF NORMAL , UNSP, UNSP TRIMESTER Status: Acute Current Visit: Yes (3) SNOMED Code(s): 25656351 Code(s): Z34.90 - ENCNTR FOR SUPRVSN OF NORMAL , UNSP, UNSP TRIMESTER Status: Acute Current Visit: Yes Qualifiers: Weeks of gestation: 39 weeks Qualified Code(s): Z3A.39 - 39 weeks gestation of (4) Normal vaginal delivery SNOMED Code(s): 19784142 Code(s): O80 - ENCOUNTER FOR FULL-TERM UNCOMPLICATED DELIVERY Status: Acute Current Visit: Yes - Problem List Review Problem List Initiated/Reviewed/Updated: Yes - My Orders Last 24 Hours: My Active Orders 06/21/18 07:23 Ambulate [RC] PER UNIT ROUTINE Notify Provider Vital Signs [RC] PRN Up ad Nicole [RC] ASDIRECTED DRUG SCREEN, URINE [URCHEM] Urgent UA W/MICROSCOPIC [URIN] Urgent Acetaminophen [Tylenol] 650 mg PO Q4H PRN Calcium Carbonate [Tums] 1,000 mg PO Q2H PRN Ondansetron [Zofran] 4 mg IV Q4H PRN Sodium Chloride 0.9% [Saline Flush] 10 ml FLUSH ASDIRECTED PRN fentaNYL [Sublimaze] 100 mcg IVPUSH Q1H PRN DVT/VTE Prophylaxis Reflex [OM.PC] Routine Resuscitation Status Routine 06/21/18 07:25 Patient Status [ADT] Routine Notify Provider [RC] PRN Epidural Catheter Management [OM.PC] Urgent Saline Lock Insert [OM.PC] Routine 06/21/18 07:29 VTE/DVT Education [RC] Click to Edit 06/21/18 07:30 Insert Urinary Catheter [OM.PC] ASDIRECTED 06/21/18 16:09 May Shower [RC] ASDIRECTED Acetaminophen [Tylenol Bulk Bottle] 325 mg PO Q4H PRN Docusate Sodium [Colace] 100 mg PO BID PRN Hydrocortisone [Proctozone-HC 2.5% Crm] 0 gm TOP ASDIRECTED PRN Ibuprofen [Motrin Bulk Bottle] 600 mg PO Q6H PRN Lanolin [Lansinoh HPA] 0 gm TOP ASDIRECTED PRN Witch Linda [Tucks] 1 pad TOP ASDIRECTED PRN Assess Lochia [WOMSER] Per Unit Routine Assess Uterine Involution [WOMSER] Per Unit Routine 06/21/18 16:10 Patient Status [ADT] Routine Vital Signs [RC] PFP 06/21/18 16:11 Perineal Care [OM.PC] Per Unit Routine 06/21/18 Breakfast Regular Diet [DIET] - Assessment Assessment:: 06/21/2018 27yo G3 now P3 at 39 6/7 gestational weeks without complications Labs-A positive, GBS negative, RPR nonreactive, Hep B neg, HIV neg, Hep C neg, Rubella Immune, Hgb-10.0 06/22/2018 Day One and Bottlefeeding Fundus firm and bleeding decreased Voiding and passing gas - Plan Plan:: 06/21/2018 27 yo at 39 6/7 gestational weeks here for an induction of labor Small for gestational age 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
== END 2018-06-22 16:45 | disposition home or self-care (01) | DRG 775 ==
LOC: JP.OB 07:02 → OBSVTOIN 15:54 → JP.OB 15:54 → JP.MS 21:00
PROVIDERS: ADMIT Advanced Practice Midwife; ATTEND Advanced Practice Midwife
PROC: 10E0XZZ Delivery of Products of Conception, External Approach (ICD-10-PCS; principal; 2018-06-21)
PROC: 3E033VJ Introduction of Other Hormone into Peripheral Vein, Percutaneous Approach (ICD-10-PCS; 2018-06-21)
DX: O69.81X0 Labor and delivery complicated by cord around neck, without compression, not applicable or unspecified (principal); O99.334 Smoking (tobacco) complicating childbirth; F17.210 Nicotine dependence, cigarettes, uncomplicated; O99.344 Other mental disorders complicating childbirth; F41.9 Anxiety disorder, unspecified; Z3A.39 39 weeks gestation of pregnancy; Z37.0 Single live birth
CPT/HCPCS: 36415; 59409; 80048; 80305-QW; 81001; 85025; A9270-GY; J2590; J2795; J7120

== ENCOUNTER 2020-12-23 09:58 | Emergency (ER) | payer OTHER ==
--- NOTE | 2020-12-23 10:04 | EDM.PDOC ---
ED HPI GENERAL MEDICAL PROBLEM - General Chief Complaint: Eye Problems Stated Complaint: 2P-10 IN EYE Time Seen by Provider: 12/23/20 10:10 Source of Information: Reports: Patient History Limitations: Reports: No Limitations - History of Present Illness INITIAL COMMENTS - FREE TEXT/NARRATIVE: 30-year-old female who splashed some crazy glue into the right eye about 1 hour ago at work. They flushed her eye fairly thoroughly for 5 to 10 minutes and came in. Her vision is a little blurry in the right eye, and there is some burning sensation. Onset: Sudden Duration: Hour(s): (1 hour ago) Location: Reports: Other (Right eye) Associated Symptoms: Reports: No Other Symptoms - Related Data Allergies Allergy/AdvReac Type Severity Reaction Status Date / Time nystatin Allergy Cannot Verified 10/17/19 06:53 Remember Penicillins Allergy Swelling Verified 10/17/19 06:53 Home Meds: Home Meds Pnv22/Iron Cbn&Gluc/Fa/Dss/Dha [PNV OB + DHA] 1 tab PO DAILY 11/13/17 [History] valACYclovir [Valtrex] 1,000 mg PO DAILY 10/16/19 [History] Acetaminophen/HYDROcodone [Kennedy 325-5 MG] 2 tab PO Q4H PRN #20 tablet 10/19/19 [Rx] Docusate Sodium [Colace] 100 mg PO BID #60 cap 10/19/19 [Rx] Ketorolac [Toradol] 10 mg PO Q6H 3 Days #12 tablet 10/19/19 [Rx] Past Medical History HEENT History: Reports: None Gastrointestinal History: Reports: None Genitourinary History: Reports: UTI, Recurrent BLOCKMASON History: Reports: , Other (See Below) Other BLOCKMASON History: COLIN-10/23/19. abnormal pap Psychiatric History: Reports: Anxiety, Depression Hematologic History: Reports: Anemia - Infectious Disease History Infectious Disease History: Reports: Herpes - Past Surgical History HEENT Surgical History: Reports: Adenoidectomy, Myringotomy w Tube(s) Female Surgical History: Reports: Section, LEEP Social & Family History - Family History Family Medical History: No Pertinent Family History - Caffeine Use Caffeine Use: Reports: Coffee ED ROS GENERAL - Review of Systems Review Of Systems: See Below Constitutional: Denies: Fever, Chills HEENT: Reports: Vision Change (Some blurriness to the right eye) Respiratory: Denies: Shortness of Breath GI/Abdominal: Denies: Nausea, Vomiting Neurological: Denies: Headache ED EXAM GENERAL W FULL EYE - Physical Exam Exam: See Below Exam Limited By: No Limitations General Appearance: Alert, No Apparent Distress Cornea Exam: Right: Corneal Abrasion (Small abrasion or fluorescein uptake is seen just under the pupil), Examined with Flourescein Extraocular Movements: Bilateral: Intact Pupils: Normal Accommodation Respiratory/Chest: No Respiratory Distress Course - Vital Signs Last Recorded V/S: Last Vital Signs Temp 98.0 F 12/23/20 10:09 Pulse 87 12/23/20 10:09 Resp 20 12/23/20 10:09 BP 120/86 12/23/20 10:09 Pulse Ox 100 12/23/20 10:09 - Orders/Labs/Meds Meds: Medications Discontinued Medications Generic Name Dose Route Start Last Admin Trade Name Freq PRN Reason Stop Dose Admin Proparacaine HCl 1 ml 12/23/20 10:08 12/23/20 10:17 Proparacaine 0.5% Ophth Soln EYERT 12/23/20 10:09 1 ml ONETIME ONE Administration - Re-Assessments/Exams Free Text/Narrative Re-Assessment/Exam: 12/23/20 11:33 Discussed with poison control, recommended antibiotic drops and follow-up within 2 days. Patient was started on gentamicin eyedrops and will see Dr. Artis on morning. Proparacaine did give her good relief of discomfort prior to the fluorescein staining. Departure - Departure Time of Disposition: 10:57 Disposition: Home, Self-Care 01 Clinical Impression: Corneal abrasion Qualifiers: Encounter type: initial encounter Laterality: right Qualified Code(s): S05.01XA - Injury of conjunctiva and corneal abrasion without foreign body, right eye, initial encounter - Discharge Information Instructions: Eye Foreign Body, [id number], Corneal Abrasion, [id number] Referrals: Odette Silveira CNM [Primary Care Provider] - Forms: ED Department Discharge Care Plan Goals: Use 2 drops of antibiotic in your right eye 4 times a day and recheck at 8:45 AM at [facility], or return sooner if worsening or concerns. Sepsis Event Note (ED) - Focused Exam Vital Signs: Vital Signs Temp Pulse Resp BP Pulse Ox 12/23/20 10:09 98.0 F 87 20 120/86 100
[2020-12-23] MEDS ORDERED: Proparacaine 0.5% Ophth Soln 15 ML Bottle EYERT ONE (10:08)
== END 2020-12-23 10:57 | disposition home or self-care (01) ==
LOC: JP.ED 09:58
DX: S05.01XA Injury of conjunctiva and corneal abrasion without foreign body, right eye, initial encounter (principal); Z88.0 Allergy status to penicillin; Z88.8 Allergy status to other drugs, medicaments and biological substances; X58.XXXA Exposure to other specified factors, initial encounter
CPT/HCPCS: 99283; A9270

== ENCOUNTER 2022-10-20 19:20 | Emergency (ER) | payer SELFPAY ==
[2022-10-20] MEDS ORDERED: Ibuprofen 400 MG Tab PO ONE (21:10)
== END 2022-10-20 22:39 | disposition home or self-care (01) ==
LOC: JP.ED 19:20
DX: S06.0X1A Concussion with loss of consciousness of 30 minutes or less, initial encounter (principal); S16.1XXA Strain of muscle, fascia and tendon at neck level, initial encounter; Z72.0 Tobacco use; Z88.0 Allergy status to penicillin; Z88.8 Allergy status to other drugs, medicaments and biological substances; Z79.899 Other long term (current) drug therapy; W18.30XA Fall on same level, unspecified, initial encounter; Y93.22 Activity, ice hockey
CPT/HCPCS: 70450; 72125; 76377; 99284; A9270

== ENCOUNTER 2023-01-14 15:59 | Emergency (ER) | payer OTHER ==
[2023-01-14] MEDS ORDERED: diphenhydrAMINE 50 MG/ML SDV IM ONE (16:20)
[2023-01-14] MEDS ORDERED: LORazepam 2 MG/ML SDV IM ONE (16:20)
== END 2023-01-14 17:36 | disposition home or self-care (01) ==
LOC: JP.ED 15:59
DX: M62.838 Other muscle spasm (principal); Z88.0 Allergy status to penicillin; Z88.8 Allergy status to other drugs, medicaments and biological substances
CPT/HCPCS: 36415; 80048; 80305; 82040; 82550; 83735; 96372; 99283; J1200; J2060